=== PATIENT | female | born 1970 | race Caucasian/White ===

== ENCOUNTER 2021-04-24 13:49 | Emergency (ER) | END 2021-04-24 16:14 | disposition left against medical advice (07) | LOC: ERS 13:49 | DX: Z53.21 Procedure and treatment not carried out due to patient leaving prior to being seen by health care provider (principal) ==

== ENCOUNTER 2021-05-08 15:15 | Emergency (ER) | payer MEDICAID | END 2021-05-08 17:34 | disposition left against medical advice (07) | LOC: ERS 15:15 | DX: Z53.21 Procedure and treatment not carried out due to patient leaving prior to being seen by health care provider (principal) ==